=== PATIENT | female | born 1955 | race African-American/Black ===

== ENCOUNTER 2018-02-23 12:29 | Outpatient (CLI) | payer MEDICARE, OTHER | END 2018-02-23 12:30 | disposition home or self-care (01) | LOC: BICMAMMO 12:29 | PROVIDERS: ATTEND Nurse Practitioner Family | DX: Z12.31 Encounter for screening mammogram for malignant neoplasm of breast (principal) | CPT/HCPCS: 77063; 77067 ==

== ENCOUNTER 2018-12-19 10:26 | Outpatient (CLI) | payer MEDICARE | END 2018-12-19 10:27 | disposition home or self-care (01) | LOC: CTENTCT 10:26 | PROVIDERS: ATTEND Otolaryngology Plastic Surgery within the Head & Neck | DX: J32.9 Chronic sinusitis, unspecified (principal) | CPT/HCPCS: 70486 ==

== ENCOUNTER 2019-01-18 08:37 | Day surgery (SDC) | payer MEDICARE ==
[2019-01-17 10:19] VITALS: BMI 34.4
[2019-01-18] MEDS ORDERED: Oxymetazoline HCl 0.05% ( 15 ML ) ONE ×2 (10:44→12:12)
[2019-01-18] MEDS ORDERED: Fentanyl 250 MCG/5 ML VIAL ONE (10:47)
[2019-01-18 11:02] LABS: Hemoglobin 13.6 g/dL (12.0-16.0)
[2019-01-18 11:12] LABS: Anion Gap 16 mmol/L (10-20); BUN (Urea Nitrogen) 10 mg/dL (9.8-20.1); Calc. Creatinine Clearance 111 mL/min (70-130); Calcium 10.5 mg/dL (7.8-10.44); Carbon Dioxide 25 mmol/L (23-31); Chloride 103 mmol/L (98-107); Estimated GFR-MDRD Greater than 90; Glucose 138 mg/dL (80-115); Potassium 3.9 mmol/L (3.5-5.1); Sodium 140 mmol/L (136-145)
[2019-01-18] MEDS ORDERED: Lidocaine 1% w/Epinephrine 1:100K 20 ML VIAL ONE (12:12)
[2019-01-18] MEDS ORDERED: Fentanyl 100 MCG/2 ML VIAL ONE (13:22)
[2019-01-18] MEDS ORDERED: Hydrocodone-Acetamin 15 ML UDCUP ONE (14:15)
[2019-01-18] MEDS ORDERED: Glycopyrrolate 0.2 MG/ML 5 ML SYRINGE ONE (16:52)
[2019-01-18] MEDS ORDERED: ePHEDrine 50 MG/ML VIAL ONE (16:52)
[2019-01-18] MEDS ORDERED: Lidocaine 1% PF 5 ML VIAL ONE (16:52)
[2019-01-18] MEDS ORDERED: Rocuronium Bromide 10 MG/ML (10ML VIAL) ONE (16:52)
[2019-01-18] MEDS ORDERED: PHENYLEPHRINE-NS 100 MCG/ML 10 ML SYRINGE ONE (16:52)
[2019-01-18] MEDS ORDERED: Ondansetron PF 4 MG/2 ML Vial ONE (16:52)
[2019-01-18] MEDS ORDERED: PROPOFOL 200 MG/20 ML VIAL ONE (16:52)
[2019-01-18] MEDS ORDERED: Dexamethasone 20 MG/5 ML VIAL ONE (16:52)
--- NOTE | 2019-01-19 09:31 | OP ---
DATE OF PROCEDURE: 01/18/2019 PREOPERATIVE DIAGNOSES: 1. Chronic rhinosinusitis. 2. Bilateral inferior turbinate hypertrophy. 3. Nasal obstruction. 4. Right middle turbinate javi bullosa. ESTIMATED BLOOD LOSS: 50 mL. COMPLICATIONS: None. ANESTHESIA: GETA. DESCRIPTION OF PROCEDURE: The patient was taken to the operating room, placed supine on the table. General endotracheal anesthesia was obtained by the anesthesia staff. Tube was secured in the left lower lip. Following this, the patient was placed in a beach chair position. Afrin pledgets were placed in the nasal cavity as the patient was prepped and draped for standard nasal surgery. Following this, 1% lidocaine with 1:100,000 epinephrine was injected into the inferior turbinates, middle turbinates, and lateral nasal wall bilaterally. Following this, the 0-degree endoscope was then advanced into the middle meatus. The large right middle turbinate javi bullosa deformity was identified and a vertical incision was made using a sickle knife into the right middle turbinate. Lateral wall of the middle turbinate was then removed using the 0-degree microdebrider and the straight Blakesley forceps. Following this, the uncinate process was identified bilaterally and was anteriorly fractured using a ball-ended probe. The uncinate was then removed using the microdebrider and the up-biting Blakesley forceps bilaterally. Following this, the natural maxillary sinus ostia was identified using the ball-ended probe and then the maxillary antrostomy was widened using the curved microdebrider bilaterally. Following this, the ethmoidal bulla was identified bilaterally and the 0-degree microdebrider was used to puncture the ethmoidal bulla on its medial and inferior aspect with the 0-degree microdebrider. Following this, the ethmoidal bulla was removed using the microdebrider and the up-biting Blakesley forceps. This anterior ethmoidal cells were opened using the 0-degree microdebrider and curved microdebrider. Following this, the grand lamella was identified and was punctured into the posterior ethmoidal cells bilaterally. Working from posterior to anterior, the ethmoidal cells were opened using the 0-degree microdebrider, the curved microdebrider, and the up-biting Blakesley forceps. Following this, a 45-degree endoscope and the 40-degree microdebrider blade was further used to open the frontal sinus ostia bilaterally. Following this, the inferior turbinates were punctured on the anterior and inferior aspect with the submucosal microdebrider and submucosal resection was performed of the anterior and inferior portions of the inferior turbinates bilaterally. Following this, the nasal cavity was irrigated. Mirapex was placed within the middle meatus. The patient tolerated the procedure well. Job ID: [id number]
--- NOTE | 2019-01-19 11:36 | EKG ---
Test Reason : PREOP Blood Pressure : / mmHG Vent. Rate : 075 BPM Atrial Rate : 075 BPM P-R Int : 134 ms QRS Dur : 082 ms QT Int : 396 ms P-R-T Axes : 070 -07 000 degrees QTc Int : 442 ms Normal sinus rhythm Normal ECG Confirmed by RUPESH WHITING ([id number]) on 01/19/2019 11:36:50 AM Referred By: COURTNEY Confirmed By:RUPESH WHITING
== END 2019-01-18 14:48 | disposition home or self-care (01) ==
LOC: SDC 08:37
PROVIDERS: ATTEND Otolaryngology Plastic Surgery within the Head & Neck
PROC: 099T8ZZ Drainage of Left Frontal Sinus, Via Natural or Artificial Opening Endoscopic (ICD-10-PCS; principal; 2019-01-18)
PROC: 099Q8ZZ Drainage of Right Maxillary Sinus, Via Natural or Artificial Opening Endoscopic (ICD-10-PCS; 2019-01-18)
PROC: 099R8ZZ Drainage of Left Maxillary Sinus, Via Natural or Artificial Opening Endoscopic (ICD-10-PCS; 2019-01-18)
PROC: 099S8ZZ Drainage of Right Frontal Sinus, Via Natural or Artificial Opening Endoscopic (ICD-10-PCS; 2019-01-18)
PROC: 09TV8ZZ Resection of Left Ethmoid Sinus, Via Natural or Artificial Opening Endoscopic (ICD-10-PCS; 2019-01-18)
PROC: 09TU8ZZ Resection of Right Ethmoid Sinus, Via Natural or Artificial Opening Endoscopic (ICD-10-PCS; 2019-01-18)
PROC: 09TL8ZZ Resection of Nasal Turbinate, Via Natural or Artificial Opening Endoscopic (ICD-10-PCS; 2019-01-18)
PROC: 09TL8ZZ Resection of Nasal Turbinate, Via Natural or Artificial Opening Endoscopic (ICD-10-PCS; 2019-01-18)
DX: J32.8 Other chronic sinusitis (principal); J34.89 Other specified disorders of nose and nasal sinuses; J34.3 Hypertrophy of nasal turbinates; I10 Essential (primary) hypertension; E78.00 Pure hypercholesterolemia, unspecified; Z79.82 Long term (current) use of aspirin; Z79.84 Long term (current) use of oral hypoglycemic drugs; Z79.899 Other long term (current) drug therapy; Z88.0 Allergy status to penicillin
CPT/HCPCS: 80048; 85014; 85018; 93005; 93010; J1100; J2001; J2405; J2704; J3010; J3490

== ENCOUNTER 2019-03-01 12:10 | Outpatient (CLI) | payer MEDICARE ==
--- NOTE | 2019-03-01 16:49 | MMO ---
Bilateral MAMMO Bilat Screen [facility]. CLINICAL HISTORY: Patient is 64 years old and is seen for screening. The patient has no family history of breast cancer. The patient has no personal history of cancer. The patient has a history of right Stereotatic Biopsy in July, - benign. VIEWS: The views performed were: bilateral craniocaudal with tomosynthesis and bilateral mediolateral oblique with tomosynthesis. FILMS COMPARED: The present examination has been compared to prior imaging studies performed at on 09/07/2013 and 02/23/2018. MAMMOGRAM FINDINGS: There are scattered fibroglandular densities. Finding 1: There are stable benign appearing calcifications seen in both breasts. Finding 2: There is a stable biopsy clip seen in the right breast. There are no suspicious masses, suspicious calcifications, or new areas of architectural distortion. IMPRESSION: THERE IS NO MAMMOGRAPHIC EVIDENCE OF MALIGNANCY. A ROUTINE FOLLOW-UP MAMMOGRAM IN 1 YEAR IS RECOMMENDED. THE RESULTS OF THIS EXAM WERE SENT TO THE PATIENT. ACR BI-RADS Category 2 - Benign finding MAMMOGRAPHY NOTE: 1. A negative mammogram report should not delay a biopsy if a dominant of clinically suspicious mass is present. 2. Approximately 10% to 15% of breast cancers are not detected by mammography. 3. Adenosis and dense breasts may obscure an underlying neoplasm. Reported by: JOANNA THOMASON MD Electonically Signed: [id number]
== END 2019-03-01 12:11 | disposition home or self-care (01) ==
LOC: BICMAMMO 12:10
PROVIDERS: ATTEND Family Medicine
DX: Z12.31 Encounter for screening mammogram for malignant neoplasm of breast (principal); Z91.89 Other specified personal risk factors, not elsewhere classified
CPT/HCPCS: 77063; 77067

== ENCOUNTER 2019-05-29 08:19 | Outpatient (CLI) | payer MEDICARE ==
--- NOTE | 2019-05-29 08:39 | RAD ---
2 view chest: [05/29/2019] Comparion:None available HISTORY: Shortness of breath FINDINGS: No pneumothorax or pleural fluid. No focal consolidation or alveolar edema. Heart and media stinal contours are unremarkable. Clips in right upper quadrant suggest prior cholecystectomy. Multilevel mild degenerative change of the mid thoracic spine. IMPRESSION: No acute findings.
== END 2019-05-29 08:20 | disposition home or self-care (01) ==
LOC: RAD 08:19
PROVIDERS: ATTEND Internal Medicine Critical Care Medicine
DX: R06.00 Dyspnea, unspecified (principal)
CPT/HCPCS: 71046

== ENCOUNTER 2020-06-12 15:16 | Outpatient (CLI) | payer MEDICARE ==
--- NOTE | 2020-06-12 16:36 | MMO ---
Bilateral MAMMO Bilat Screen [facility]. CLINICAL HISTORY: Patient is 65 years old and is seen for screening. The patient has no family history of breast cancer. The patient has no personal history of cancer. The patient has a history of right Stereotatic Biopsy in July, - benign. VIEWS: The views performed were: bilateral craniocaudal with tomosynthesis and bilateral mediolateral oblique with tomosynthesis. FILMS COMPARED: The present examination has been compared to prior imaging studies performed at 09/07/2013, 02/23/2018 and 03/01/2019. This study has been interpreted with the assistance of computer-aided detection. MAMMOGRAM FINDINGS: There are scattered fibroglandular densities. Benign calcifications are noted bilaterally. Right biopsy clip. There are no suspicious masses, suspicious calcifications, or new areas of architectural distortion. IMPRESSION: THERE IS NO MAMMOGRAPHIC EVIDENCE OF MALIGNANCY. A ROUTINE FOLLOW-UP MAMMOGRAM IN 1 YEAR IS RECOMMENDED. THE RESULTS OF THIS EXAM WERE SENT TO THE PATIENT. ACR BI-RADS Category 2 - Benign finding MAMMOGRAPHY NOTE: 1. A negative mammogram report should not delay a biopsy if a dominant of clinically suspicious mass is present. 2. Approximately 10% to 15% of breast cancers are not detected by mammography. 3. Adenosis and dense breasts may obscure an underlying neoplasm. Reported by: RANDI CASSIDY MD Electonically Signed: [id number]
== END 2020-06-12 15:17 | disposition home or self-care (01) ==
LOC: BICMAMMO 15:16
PROVIDERS: ATTEND Family Medicine
DX: Z12.31 Encounter for screening mammogram for malignant neoplasm of breast (principal); Z91.89 Other specified personal risk factors, not elsewhere classified
CPT/HCPCS: 77063; 77067

== ENCOUNTER 2023-12-23 12:02 | Outpatient (CLI) | payer OTHER, MEDICAID | END 2023-12-23 12:03 | disposition home or self-care (01) | LOC: BICMAMMO 12:02 | PROVIDERS: ATTEND Student in an Organized Health Care Education/Training Program | DX: Z12.31 Encounter for screening mammogram for malignant neoplasm of breast (principal); Z91.89 Other specified personal risk factors, not elsewhere classified | CPT/HCPCS: 77063; 77067 ==

== ENCOUNTER 2024-02-29 21:11 | Emergency (ER) | payer OTHER, MEDICAID ==
[2024-02-29 23:17] LABS: SARS-CoV-2 E Target Positive; SARS-CoV-2 N2 Target Positive; SARS-CoV-2 NAA Rapid Test DETECTED (NotDetected); SARS-CoV-2 RdRP gene Positive
== END 2024-02-29 23:47 | disposition home or self-care (01) ==
LOC: ERS 21:11
DX: U07.1 COVID-19 (principal); J06.9 Acute upper respiratory infection, unspecified; I10 Essential (primary) hypertension; E11.9 Type 2 diabetes mellitus without complications
CPT/HCPCS: 99283; U0002

== ENCOUNTER 2025-05-04 15:18 | Outpatient (CLI) | payer OTHER, MEDICAID | END 2025-05-04 15:19 | disposition home or self-care (01) | LOC: BICMAMMO 15:18 | PROVIDERS: ATTEND Student in an Organized Health Care Education/Training Program | DX: Z12.31 Encounter for screening mammogram for malignant neoplasm of breast (principal); Z91.89 Other specified personal risk factors, not elsewhere classified | CPT/HCPCS: 77063; 77067 ==